=== PATIENT | female | born 1970 | race Caucasian/White ===

== ENCOUNTER 2020-10-08 23:01 | Emergency (ER) | payer OTHER ==
[~2020-10-08] VITALS: Ht 165.1 cm; Wt 65.9 kg
[2020-10-08] MEDS ORDERED: CAPT1TAB7 PO (23:52)
[2020-10-09 00:36] VITALS: BP 143/55
== END 2020-10-09 00:39 | disposition home or self-care (01) ==
LOC: EMS 23:06
DX: J84.10 Pulmonary fibrosis, unspecified (principal)
CPT/HCPCS: 71046; 99283